=== PATIENT | female | born 1945 | race Caucasian/White ===

== ENCOUNTER 2021-06-21 19:04 | Emergency (ER) | payer OTHER, BC ==
[~2021-06-21] VITALS: Ht 157.5 cm; Wt 77.1 kg
[2021-06-21] MEDS ORDERED: ASA81BEC PO (19:18)
[2021-06-21 20:22] LABS: ABSOLUTE NEUTROPHILS 4.9 thou/uL (1.4-8.2); BASOPHILS 0.8 % (0.0-2.0); HEMOGLOBIN 11.4 gm/dL (12.0-15.0); LYMPHOCYTES 14.6 % (24.0-44.0); MCHC 33.5 g/dL (28.0-37.0); MCV 86.6 fL (80.0-100.0); MONOCYTES 17.8 % (1.0-8.0); PLATELET COUNT 150 thou/uL (150-400); POLYS 64.8 % (36.0-66.0); RBC 3.92 mil/uL (4.20-5.00); RDW 13.1 % (10.5-14.5); WBC 7.5 thou/uL (4.0-11.0)
[2021-06-21 20:40] LABS: ALBUMIN 3.4 g/dL (3.4-5.0); CALCIUM 9.1 mg/dL (8.5-10.1); CREATININE 1.8 mg/dL (0.6-1.0); DIRECT BILIRUBIN 0.2 mg/dL (<0.1-0.2); MAGNESIUM 1.9 mg/dL (1.8-2.4); PHOSPHORUS 2.6 mg/dL (2.5-4.9); TOTAL BILIRUBIN 0.6 mg/dL (0.2-1.0); TOTAL PROTEIN 6.9 g/dL (6.4-8.2)
[2021-06-21 20:43] LABS: POTASSIUM 2.7 mmol/L (3.5-5.1)
[2021-06-22 00:44] LABS: URINE BILIRUBIN NEGATIVE (Negative); URINE BLOOD 2+ (Negative); URINE CLARITY CLOUDY; URINE COLOR YELLOW; URINE GLUCOSE-RANDOM* NEGATIVE (Negative); URINE KETONES 1+ (Negative); URINE NITRITE-REFLEX NEGATIVE (Negative); URINE PROTEIN (DIPSTICK) TRACE (Negative); URINE SPECIFIC GRAVITY 1.025 (1.005-1.035); URINE UROBILINOGEN 0.2 E.U./dl (0.2-1.0)
[2021-06-22 00:45] LABS: URINE LEUKOCYTES-REFLEX 2+ (Negative)
[2021-06-22 00:58] LABS: SQUAMOUS 4-10 Moderate /LPF (0-3)
[2021-06-22 00:59] LABS: CRYSTALS None Seen /LPF (None Seen); HYALINE CASTS 4-10 Moderate /LPF (None Seen); MUCUS 4-6 Moderate strn/LPF (None Seen)
[2021-06-22] MEDS ORDERED: CEPHALEXIN500 MG PO (01:08)
[2021-06-22 01:35] VITALS: BP 116/60
--- NOTE | 2021-06-22 07:18 | EKG ---
[place] [address] [facility] [place] [address] ELECTROCARDIOGRAM REPORT Name: SHANON ELDRIDGE [id number] Admission: 06/21/21 Attend Phys: Discharge: 06/22/21 Date of : 47 Report #: [id number] [facility] ED Test Date: 2021-06-21 Test Time: 20:00:18 Pat Name: SHANON ELDRIDGE Department: Room: Gender: F Penciller: VIRAL : 1945 Requested By: Bunny Rangel Order Number: [id number] MD: Yash Saldana Measurements Intervals [place] Rate: 82 P: [place]: QRS: 7 QRSD: 112 T: 36 QT: 381 QTc: 445 Interpretive Statements Atrial flutter with predominant 3:1 AV block RSR' in V1 or V2, right VCD or RVH Probable left ventricular hypertrophy No previous ECG available for comparison Electronically Signed On 06-22-2021 7:17:53 STAFFING DIRECTOR by Yash Saldana [email or web address] <ELECTRONICALLY SIGNED> By: Yash Saldana MD, [facility] 06/22/21 07 99 99 Yash Saldana MD, FAC /EPI
== END 2021-06-22 02:04 | disposition home or self-care (01) ==
LOC: ER 19:04
PROVIDERS: Emergency Medicine
DX: N17.9 Acute kidney failure, unspecified (principal); E87.6 Hypokalemia; E86.0 Dehydration; N39.0 Urinary tract infection, site not specified; Z90.710 Acquired absence of both cervix and uterus; Z98.890 Other specified postprocedural states